=== PATIENT | male | born 1995 | race Caucasian/White ===

== ENCOUNTER 2020-05-02 17:27 | Emergency (ER) | payer MEDICAID, OTHER ==
[2020-05-02] MEDS ORDERED: KETOROLAC TROMETHAMINE 60 MG/2 ML SDV IM ONE (18:03)
--- NOTE | 2020-05-02 18:45 | RADIOLOGY REPORT (SQ) ---
EXAM DESCRIPTION: KNEE LEFT 4 VIEW IMAGES COMPLETED DATE/TIME: 05/02/2020 6:35 pm REASON FOR STUDY: left knee injury COMPARISON: None. NUMBER OF VIEWS: Four views. TECHNIQUE: AP, lateral, and both oblique radiographic images acquired of the left knee. LIMITATIONS: None. FINDINGS: MINERALIZATION: Normal. BONES: No acute fracture or dislocation. No worrisome bone lesions. JOINT: No effusion. SOFT TISSUES: No soft tissue swelling. No radio-opaque foreign body. OTHER: No other significant finding. IMPRESSION: NEGATIVE STUDY OF THE LEFT KNEE. NO RADIOGRAPHIC EVIDENCE OF ACUTE INJURY. TECHNICAL DOCUMENTATION: JOB ID: [id number] 2010 [employer]- All Rights Reserved Reading location - IP/workstation name: [email or web address]
--- NOTE | 2020-05-02 19:04 | ER Document Report ---
HPI - HPI Patient complains to provider of: Left knee injury Time Seen by Provider: 05/02/20 18:01 Pain Level: 3 Notes: 25-year-old male to the emergency department with complaints of left knee injury that occurred at work today. 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 He states he noticed that his patella was off to the side of his knee and so he reduced it back. He states that since then he has been having pain to the lateral aspect of the left knee and really having some difficulty bending it. He states that he took some Tylenol at home which did initially help his pain but now it is worn off and his pain is persisted. He states he is having some difficulty bearing weight. He denies any other injuries. - ROS Systems Reviewed and Negative: Yes All other systems reviewed and negative - CONSTITUTIONAL Constitutional: DENIES: Fever, Chills - EENT EENT: DENIES: Sore Throat, Ear Pain, Congestion - NEURO Neurology: DENIES: Headache - CARDIOVASCULAR Cardiovascular: DENIES: Chest pain - RESPIRATORY Respiratory: DENIES: Trouble Breathing, Coughing - GASTROINTESTINAL Gastrointestinal: DENIES: Abdominal Pain, Nausea, Patient vomiting, Diarrhea - MUSCULOSKELETAL Musculoskeletal: REPORTS: Extremity pain Notes: Left knee pain - DERM Skin Color: Normal Skin Problems: None Past Medical History - General Information source: Patient - Social History Smoking Status: Former Smoker Frequency of alcohol use: Occasional Drug Abuse: None Family History: Reviewed & Not Pertinent Vertical Provider Document - CONSTITUTIONAL General Appearance: WD/WN, No Apparent Distress - HEENT HEENT: Atraumatic, Normocephalic, PERRLA - NECK Neck: Normal Inspection, Supple - RESPIRATORY Respiratory: Breath Sounds Normal, No Respiratory Distress. negative: Rales, Rhonchi, Wheezing - CARDIOVASCULAR Cardiovascular: Regular Rate, Regular Rhythm, No Murmur - GI/ABDOMEN Gastrointestinal: Abdomen Soft, Abdomen Non-Tender, No Organomegaly - BACK Back: Normal Inspection - MUSCULOSKELETAL/EXTREMETIES Notes: There is tenderness to palpation over the anterior left knee joint. There is mild edema. There is also significant point tenderness along the lateral aspect of the left knee. Anterior drawer is negative. Valgus varus stressing also appears to be negative although patient's exam is slightly limited due to his pain. Nontender to palpation over the left hip and left ankle. DP pulses are intact and equal. Patient can wiggle all toes. Cap refill in toes are less than 2 seconds - NEURO Level of Consciousness: Awake, Alert, Appropriate Motor/Sensory: No Motor Deficit, No Sensory Deficit - DERM Integumentary: Warm, No Rash Course - Re-evaluation Re-evalutation: 05/02/20 Impression: Left knee injury. Concerning story for possible internal ligament mentis injury. Have placed patient in a knee immobilizer and on crutches. Have encouraged him to follow-up with the orthopedist without fail. Have encouraged him to rest, ice, elevate the knee. Encouraged him to return if any worsening symptoms. Mom agrees with the plan. - Vital Signs Vital signs: Temp Pulse Resp BP Pulse Ox 98.3 F 114 H 18 167/104 H 99 05/02/20 17:34 05/02/20 17:34 05/02/20 17:34 05/02/20 17:34 05/02/20 17:34 05/03/20 00:00 Temp Pulse Resp BP Pulse Ox 98.3 F 101 H 14 142/101 H 100 05/02/20 17:34 05/02/20 19:29 05/02/20 19:29 05/02/20 19:29 05/02/20 19:29 Intake & Output 05/01/20 05/02/20 05/03/20 06:59 06:59 06:59 Weight 154.221 kg Weight/Height Weight 154.221 kg Height 6 ft 6 in - Diagnostic Test Radiology reviewed: Image reviewed, Reports reviewed Procedures - Immobilization Left Knee Pre-Proc Neuro Vasc Exam: Normal Immobilizer type: Knee immobilizer Performed by: PCT Post-Proc Neuro Vasc Exam: Normal, Unchanged from pre-exam Alignment checked and good: Yes Discharge - Discharge Clinical Impression: Left knee pain Qualifiers: Chronicity: acute Qualified Code(s): M25.562 - Pain in left knee Internal derangement of knee Qualifiers: Laterality: left Qualified Code(s): M23.92 - Unspecified internal derangement of left knee Condition: Stable Disposition: HOME, SELF-CARE Instructions: Suspected Internal Knee Injury ([facility]) Additional Instructions: Follow-up with orthopedist without fail. Return if any worsening symptoms. Rest ice elevate the knee. Ice for 20 minutes at a time. Use the knee immobilizer and use crutches. Prescriptions: Diclofenac Sodium [Voltaren 50 Mg Tablet.] 50 mg PO BID #20 tablet.dr Forms: Special Work Note Referrals: CRISPIN ECHEVARRIA MD [EMERITUS] - Follow up in 3-5 days SHELLIE CHAMBERS DO [ACTIVE STAFF] - Follow up in 1 week (for orthopedic follow up)
[2020-05-02 19:30] VITALS: BP 142/101
== END 2020-05-02 19:41 | disposition home or self-care (01) ==
LOC: ER 17:27
DX: M23.92 Unspecified internal derangement of left knee (principal); M25.562 Pain in left knee; X50.1XXA Overexertion from prolonged static or awkward postures, initial encounter; Y93.89 Activity, other specified; Y99.0 Civilian activity done for income or pay; Z87.891 Personal history of nicotine dependence
CPT/HCPCS: 99284; 96372; 73564; J1885